=== PATIENT | female | born 1970 | race African-American/Black ===

== ENCOUNTER 2018-06-25 21:33 | Emergency (ER) | payer SELFPAY ==
[~2018-06-25] VITALS: Ht 160 cm; Wt 68.0 kg
--- NOTE | 2018-06-25 21:48 | NUR ---
Patient called for triage no answer and not found in waiting room.
--- NOTE | 2018-06-25 21:52 | NUR ---
Patient called for triage assessment and not found in ED waiting room.
--- NOTE | 2018-06-25 22:05 | NUR ---
Patient called for Traige assessment no answer and not found in waiting room.
[2018-06-25 22:33] VITALS: BP_SYST 133
--- NOTE | 2018-06-25 23:01 | NUR ---
PT AMBULATORY TO BED 6 FOR EVALUATION
--- NOTE | 2018-06-25 23:12 | NUR ---
Pt states she is staying @ [facility] since Friday, and since then she has been itching and now has small scabs over upper arms.
--- NOTE | 2018-06-26 00:30 | NUR ---
ER at bedside examining patient.
[2018-06-26 01:17] VITALS: BP_SYST 133
--- NOTE | 2018-06-26 01:17 | NUR ---
Patient given written and verbal discharge instructions and verbalizes understanding. ER MD discussed with patient the results and treatment provided. Patient in stable condition. ID arm band removed. Rx of Benadryl & Permethrin 5% topical cream given. Patient educated on pain management and to follow up with PMD. Pain Scale . Opportunity for questions provided and answered. Medication side effect fact sheet provided.
== END 2018-06-26 01:17 | disposition home or self-care (01) ==
LOC: SED 21:33
DX: B86 Scabies (principal)
CPT/HCPCS: 99282